=== PATIENT | female | born 1965 | race Caucasian/White ===

== ENCOUNTER 2017-01-21 19:32 | Emergency (ER) | payer BC ==
[~2017-01-21] VITALS: Ht 177.8 cm; Wt 92.9 kg
[2017-01-21] MEDS ORDERED: NAPROSYN500 MG PO (21:19)
[2017-01-21] MEDS ORDERED: TRAMADOL HCL50 MG PO (21:19)
[2017-01-21 21:40] VITALS: BP 135/96
== END 2017-01-21 21:42 | disposition home or self-care (01) ==
LOC: EME 19:32
DX: M25.512 Pain in left shoulder (principal); Z87.828 Personal history of other (healed) physical injury and trauma
CPT/HCPCS: 73030; 99281; 99284; J1885

== ENCOUNTER 2018-04-08 11:36 | Emergency (ER) | payer BC ==
[~2018-04-08] VITALS: Ht 175.3 cm; Wt 88.3 kg
[~2018-04-08 11:36] MED LIST: NAPROSYN500 MG PO; TRAMADOL HCL50 MG PO
[2018-04-08 12:59] LABS: BASOPHIL (%) 0.4 % (0-1); EOSINOPHIL COUNT 0.1 K/uL (0-0.3); HEMATOCRIT 40.6 % (36.0-46.0); HEMOGLOBIN 13.4 G/DL (11.9-15.5); IMMATURE GRANULOCYTE (%) 0.5 % (0.0-0.7); LYMPHOCYTE COUNT 2.6 K/uL (1.0-2.8); MCH 28.5 PG (29.0-34.0); MCV 86.4 FL (83-99); MONOCYTE (%) 6.6 % (3-12); MONOCYTE COUNT 0.5 K/uL (0-0.8); NEUTROPHIL (%) 60.5 % (45-76); PLATELET COUNT 341 K/uL (156-360); RBC DIS.WIDTH-CV 12.8 % (11.8-14.6); RBC DIS.WIDTH-SD 40.4 % (39-53); WHITE BLOOD COUNT 8.2 K/uL (4.1-10.2)
[2018-04-08 13:08] LABS: ALBUMIN 4.6 g/dL (3.2-4.8)
[2018-04-08 13:09] LABS: CHLORIDE 103 mEq/L (99-109); POTASSIUM 4.1 mEq/L (3.7-5.4); SODIUM 140 mEq/L (136-147)
[2018-04-08 13:11] LABS: GLUCOSE 99 mg/dL (70-99); TOTAL PROTEIN 7.7 g/dL (6.4-8.3)
[2018-04-08 13:13] LABS: TOTAL BILIRUBIN 0.4 mg/dL (0.0-1.0)
[2018-04-08 13:14] LABS: ALKALINE PHOSPHATASE 52 IU/L (3-129)
[2018-04-08 13:15] LABS: CREATININE 0.9 mg/dL (0.6-1.3); GFR ESTIMATE (CALCULATED) > 59 mL/min/
[2018-04-08 13:16] LABS: AST (GOT) 11 IU/L (2-34); UREA NITROGEN (BUN) 25 mg/dL (9-23)
[2018-04-08 13:17] LABS: ALT (GPT) 15 IU/L (3-49)
[2018-04-08 13:18] LABS: CREATINE KINASE 26 IU/L (1-294); TOTAL CK 26 IU/L (1-294); TROP-I INTERPRETATION NEGATIVE; TROPONIN-I < 0.01 ng/mL (0.0-0.30)
[2018-04-08 13:26] LABS: QUANTITATIVE HCG 7.5 MIU/ML
[2018-04-08 13:27] LABS: CK-MB 0.7 ng/mL (0.0-4.9); CKMB RELATIVE INDEX 2.7 (0.0-3.9)
[2018-04-08 16:33] VITALS: BP 117/79
== END 2018-04-08 16:55 | disposition home or self-care (01) ==
LOC: EME 11:36
PROVIDERS: Emergency Medicine
DX: R42 Dizziness and giddiness (principal); R06.00 Dyspnea, unspecified; R25.1 Tremor, unspecified; E86.0 Dehydration; F32.9 Major depressive disorder, single episode, unspecified; F41.9 Anxiety disorder, unspecified; F43.10 Post-traumatic stress disorder, unspecified
CPT/HCPCS: 70450; 71046; 80053; 82550; 82553; 84484; 84702; 85025; 93005; 99281; 99284